=== PATIENT | female | born 1965 | race Caucasian/White ===

== ENCOUNTER 2016-10-02 07:44 | Day surgery (SDC) | payer OTHER ==
[2016-09-28 09:49] VITALS: BMI 44.2
[~2016-10-02 07:44] MED LIST: LACTATED RINGERS 1,000 ML IV SCH
[2016-10-02 08:22] VITALS: RESP 16; TEMP 97.1
[2016-10-02 08:27] LABS: Glucose,Whole Blood 256 mg/dL (75-99)
[2016-10-02] MEDS ORDERED: LIDOCAINE 1% 20 ML VIAL (10MG/ML) FOR IV START SQ ONE (08:27)
[2016-10-02] MEDS ORDERED: LIDOCAINE 1% INJ 10MG/ML (20 ML MDV) ONE (08:29)
[2016-10-02] MEDS ORDERED: MIDAZOLAM 2 MG/2 ML VIAL ONE (08:29)
[2016-10-02] MEDS ORDERED: PROPOFOL 10 MG/ML 20 ML VIAL IV ONE (08:29)
[2016-10-02] MEDS ORDERED: KETAMINE 10 MG/ML 20 ML VIAL ONE (08:29)
--- NOTE | 2016-10-02 08:54 | P.PCN ---
Date of Procedure: 10/02/16 Preoperative Diagnosis: Postoperative Diagnosis: Procedure(s) Performed: Procedure: Esophagogastroduodenoscopy and biopsy. Preoperative diagnosis: Dysphagia. Postoperative diagnosis: Normal esophagus with no evidence of esophagitis or strictures. Mild antral gastritis. Biopsies obtained from the duodenum, antrum and esophagus. Preparation and sedation: Was provided by anesthesia. Brief clinical history: The patient is a 51-year-old female who I have evaluated in the office for dysphagia of around 6 months duration. She gave history of chronic reflux. No other alarm symptoms. This would be her first upper endoscopy. Procedure: With the patient on her left lateral decubitus position and after informed consent and adequate sedation, I passed the Olympus-GIF 160 video upper endoscope through the cricopharyngeus down the esophagus. GE junction was around 39 cm from the incisors and there was no obvious hiatal hernia. The esophagus did not show any erosions, ulcers, strictures or Lanza's esophagus. The endoscope was then passed into the stomach which was insufflated with air and inspected in detail including the retroflex view in the cardia. In that view, I could see ample space around the endoscope. There was some mottling and erythema in the antrum but no ulcers or erosions. Pyloric channel, duodenal bulb, post bulbar area and descending duodenum appeared within normal limits. I obtained multiple biopsies from the duodenum, antrum and esophagus then the endoscope was withdrawn. The patient tolerated the procedure well. Plan: The patient was reassured. Will await biopsy results. Further plans will be made based on her course and biopsy results. I will keep you updated on her progress. Implants: Indications for Procedure: Operative Findings: Description of Procedure:
[2016-10-02 09:00] LABS: Glucose,Whole Blood 244 mg/dL (75-99)
[2016-10-02 09:22] VITALS: BP 126/84; PULSE 82
== END 2016-10-02 09:40 | disposition home or self-care (01) ==
LOC: ORWHC2ENDO 07:44
DX: K29.50 Unspecified chronic gastritis without bleeding (principal); K21.0 Gastro-esophageal reflux disease with esophagitis; I10 Essential (primary) hypertension; E11.9 Type 2 diabetes mellitus without complications; M19.90 Unspecified osteoarthritis, unspecified site; Z88.0 Allergy status to penicillin; Z88.2 Allergy status to sulfonamides; Z88.1 Allergy status to other antibiotic agents; Z88.8 Allergy status to other drugs, medicaments and biological substances; Z79.1 Long term (current) use of non-steroidal anti-inflammatories (NSAID); Z79.84 Long term (current) use of oral hypoglycemic drugs; Z79.4 Long term (current) use of insulin; Z79.899 Other long term (current) drug therapy
CPT/HCPCS: 43239; 81025; 88305; 88342; J2250; J2001; J2704

== ENCOUNTER → 2017-06-06 | Outpatient (CLI) | payer OTHER ==
--- NOTE | 2017-06-07 09:11 | XR ---
EXAMINATION TYPE: XR knee limited RT DATE OF EXAM: 06/06/2017 CLINICAL HISTORY: Generalized knee pain after fall approximately 7-8 weeks ago TECHNIQUE: Two views of the right knee are obtained. COMPARISON: None. FINDINGS: There is no acute fracture/dislocation evident in right knee. The tri-compartment joint s paces demonstrate mild narrowing with small distal femoral condylar osteophytes and tibial plateau os teophytes. The overlying soft tissue appears unremarkable. Small suprapatellar joint effusion is see n. IMPRESSION: 1. There is no acute fracture or dislocation in the right knee. 2. Small suprapatellar joint effusion. 3. Mild tricompartmental arthrosis.
== END | disposition home or self-care (01) ==
LOC: RADXRYALE 11:35
PROVIDERS: ATTEND Internal Medicine
DX: M17.11 Unilateral primary osteoarthritis, right knee (principal); M25.462 Effusion, left knee

== ENCOUNTER 2017-10-01 08:31 | Observation (INO) | payer OTHER ==
[2017-10-01] MEDS ORDERED: ONDANSETRON 4 MG/2 ML VIAL IVP STA (09:01)
[2017-10-01] MEDS ORDERED: SODIUM CHLORIDE 0.9% 1,000 ML IV STA (09:01)
[2017-10-01] MEDS ORDERED: SODIUM CHLORIDE 0.9% 500 ML IV STA (09:01)
[2017-10-01] MEDS ORDERED: MECLIZINE 12.5 MG TAB PO STA (09:01)
[2017-10-01 09:27] LABS: Prothrombin Time 9.8 sec (9.0-12.0)
[2017-10-01 09:28] LABS: ALT 64 U/L (9-52); AST 41 U/L (14-36); Albumin 4.3 g/dL (3.5-5.0); Alkaline Phosphatase 112 U/L (38-126); Anion Gap 13 mmol/L; Blood Urea Nitrogen 21 mg/dL (7-17); Calcium 9.4 mg/dL (8.4-10.2); Carbon Dioxide 29 mmol/L (22-30); Chloride 96 mmol/L (98-107); Glucose 313 mg/dL (74-99); Sodium 138 mmol/L (137-145); Total Bilirubin 0.4 mg/dL (0.2-1.3); Total Protein 7.2 g/dL (6.3-8.2)
--- NOTE | 2017-10-01 09:37 | CT ---
EXAMINATION TYPE: CT brain wo con DATE OF EXAM: 10/01/2017 COMPARISON: NONE HISTORY: 52-year-old female with pain, altered mental status TECHNIQUE: Examination was done in axial plane without intravenous contrast. Coronal and sagittal r econstructions performed. CT DLP: 1219 mGycm Automated exposure control for dose reduction was used. FINDINGS: Calvarial artifacts are present. Within this limitation, there is no convincing evidence of acute intracranial hemorrhage, acute isch emic changes, mass, mass-effect, or extra-axial fluid collection. There is no effacement of cerebral sulci or basal subarachnoid cisterns. There is no hydrocephalus. There is no midline shift. Stephens- white matter distinction is preserved. Paranasal sinuses and mastoid air cells are well pneumatized. Orbits and globes are intact with prior cataract surgery on the left. IMPRESSION: Allowing for mild calvarial artifacts, no acute intracranial abnormality seen.
--- NOTE | 2017-10-01 10:04 | XR ---
EXAMINATION TYPE: XR cervical spine comp DATE OF EXAM: 10/01/2017 COMPARISON: NONE HISTORY: 52-year-old female with sudden onset dizziness, confusion, neck pain TECHNIQUE: 5 views FINDINGS: No predental space widening or prevertebral soft tissue swelling. Mild to moderate endplate spondylos is is present at C4-C7 levels. 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 Alignment is maintained. Mild bony spondylotic neuroforaminal narrowing on the right at C5-C6 and mild on the left at C4-C5, C 5-C6, and C6-C7. Normal odontoid view. IMPRESSION: Mild to moderate spondylotic change mid to lower cervical spine. No malalignment or prevertebral soft tissue swelling. Variable mild neuroforaminal stenoses, left greater than right.
[2017-10-01] MEDS ORDERED: INSULIN REGULAR 100 UNIT/ML VIAL SQ ONE (12:41)
[2017-10-01 13:02] LABS: Glucose,Whole Blood 236 mg/dL (75-99)
[2017-10-01] MEDS ORDERED: ACETAMINOPHEN TAB 500 MG TAB PO STA (13:30)
[2017-10-01] MEDS ORDERED: ACETAMINOPHEN TAB 325 MG TAB PO PRN (14:47)
[2017-10-01] MEDS ORDERED: MORPHINE SULFATE 4 MG/ML SYRINGE IV PRN (14:47)
[2017-10-01] MEDS ORDERED: NALOXONE 0.4 MG/ML 1 ML VIAL IV PRN (14:47)
[2017-10-01] MEDS ORDERED: ONDANSETRON 4 MG/2 ML VIAL IVP PRN (14:47)
--- NOTE | 2017-10-01 14:47 | ED ---
Dizziness HPI - General Chief Complaint: Dizziness Stated Complaint: Altered Mental Status Time Seen by Provider: 10/01/17 08:55 Source: patient, EMS Mode of arrival: EMS Limitations: no limitations - History of Present Illness Initial Comments: 52 years old female presents with the dizziness, this morning she was driving she is also dizzy she wasn't able to continue driving she pulled over to freeway she was felt like she was she couldn't see well for him and it also complaining about the neck pain she does have a history of trauma she does have a history of degenerative disease in the neck. Denies any chest pain has a palpitation complaints about the back pain has a headache no weakness of upper or lower extremities no abdominal pain no frequency urgency dysuria - Related Data Home Medications Medication Instructions Recorded Confirmed Gabapentin [Neurontin] 100 mg PO BID 06/23/15 10/01/17 Glimepiride [Amaryl] 1 mg PO AC-BID 06/23/15 10/01/17 Ibuprofen [Motrin] 800 mg PO BID 06/23/15 10/01/17 Insulin Glargine [Lantus] 20 unit SQ HS 06/23/15 10/01/17 Insulin Glulisine [Apidra] 4 unit SQ AC-TID 06/23/15 10/01/17 Lisinopril-Hctz 20-25 mg 1 tab PO QAM 06/23/15 10/01/17 [Zestoretic 20-25] Omeprazole [PriLOSEC] 20 mg PO AC-BRKFST 06/23/15 10/01/17 PARoxetine HCL [PARoxetine HCL] 40 mg PO QAM 06/23/15 10/01/17 Insulin Glulisine [Apidra] See Protocol SQ AC-TID 07/04/15 10/01/17 Bimatoprost [Lumigan .01% Ophth 1 drop BOTH EYES HS 09/28/16 10/01/17 Soln] Sodium Chloride 5% Ophth Soln 1 drops RIGHT EYE BID 09/28/16 10/01/17 [Marko 128] prednisoLONE ACETATE 1% OPHTH 1 drops LEFT EYE BID 10/01/17 10/01/17 [Pred Forte 1%] Allergies Allergy/AdvReac Type Severity Reaction Status Date / Time levofloxacin [From Levaquin] Allergy Intermediate tendonitis Verified 10/01/17 09:34 glyburide Allergy Swelling Verified 10/01/17 09:34 Penicillins Allergy Unknown Verified 10/01/17 09:34 Childhood Sulfa (Sulfonamide Allergy Unknown Verified 10/01/17 09:34 Antibiotics) Childhood doxycycline AdvReac severe Verified 10/01/17 09:34 vomiting metformin AdvReac severe Verified 10/01/17 09:34 diarrhea Review of Systems ROS Statement: Those systems with pertinent positive or pertinent negative responses have been documented in the HPI. ROS Other: All systems not noted in ROS Statement are negative. 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, right breast needle biopsy; colonoscopy & polypectomy Past Anesthesia/Blood Transfusion Reactions: No Reported Reaction Past Psychological History: Depression Smoking Status: Never smoker Past Alcohol Use History: None Reported Past Drug Use History: None Reported - Past Family History Mother Family Medical History: Cancer, Diabetes Mellitus, Hypertension, Skin Disorder Additional Family Medical History / Comment(s): CA: thyroid, breast, skin; cataracts Father History Unknown: Yes General Exam - General Exam Comments Initial Comments: General: The patient is awake and alert, in mild distress, she looks anxious and uncomfortable Skin: Skin is warm and dry and no rashes or lesions are noted. Eye: Pupils are equal, round and reactive to light, extra-ocular movements are intact; there is normal conjunctiva bilaterally. Ears, nose, mouth and throat: It is some effusion behind the left tympanic membrane Neck: The neck is supple, there is no tenderness , no signs of any meningitis Cardiovascular: There is a regular rate and rhythm. No murmur, rub or gallop is appreciated. Respiratory: To auscultation bilateral, no wheezing no rhonchi no distress respiratory johnson noticed Gastrointestinal: Soft, non-distended, non-tender abdomen without masses or organomegaly noted. There is no rebound or guarding present. Bowel sounds are unremarkable. Back: There is no tenderness to palpation in the midline. There is no obvious deformity. Musculoskeletal: Normal ROM, no tenderness, There is no pedal edema. There is no calf tenderness or swelling. No cords were appreciated. Neurological: CN II-XII intact, Cranial nerves III through XII are intact. There are no obvious motor or sensory deficits. Coordination appears grossly intact. Speech is normal. Psychiatric: Cooperative, appropriate mood & affect, normal judgment. Limitations: no limitations Course Vital Signs 10/01/17 10/01/17 10/01/17 08:35 10:53 12:54 Temperature 98.1 F Pulse Rate 84 88 83 Pulse Rate [ Sitting] Pulse Rate [ Standing] Pulse Rate [ Supine] Respiratory 16 16 18 Rate Blood Pressure 153/75 132/66 129/75 Blood Pressure [Sitting] Blood Pressure [Standing] Blood Pressure [Supine] O2 Sat by Pulse 91 L 96 96 Oximetry 10/01/17 10/01/17 10/01/17 13:19 13:21 13:24 Temperature Pulse Rate Pulse Rate [ 96 Sitting] Pulse Rate [ 107 H Standing] Pulse Rate [ 84 Supine] Respiratory 18 18 18 Rate Blood Pressure Blood Pressure 142/88 [Sitting] Blood Pressure 151/97 [Standing] Blood Pressure 130/84 [Supine] O2 Sat by Pulse Oximetry Patient was reassessed several times at one point she was quite feeling well and she wanted to go home then she was reassessed later in the she said she still has a headache she still feels dizzy considering that since his CT brain cannot rule out any brainstem infarct I plan to admit her to have neurology see her and probably MRI of the brain area orthostatics and good - Reevaluation(s) Reevaluation #1: Cervical spine showed quite a bit of degenerative joint disease head CT is normal glucose is 313 CO2 was normal there is no ketoacidosis later we plan to give her some mild subcu insulin at that time sugar has dropped to around 220 then we held the insulin Admitted to Dr. Faria service and neurology be consulted 10/01/17 14:45 EKG Findings - EKG Comments: EKG Findings:: EKG is normal sinus rhythm medical rate is 81 NE interval is 144 QRS duration is 88 QT/QTc is 370/434 review of this EKG reveals some T-wave inversion in lead [address] elevation or ST depression noticed in the rest of the Medical Decision Making - Lab Data Result diagrams: 10/01/17 08:44 Lab Results 10/01/17 10/01/17 10/01/17 Range/Units 08:44 08:44 08:44 PT 9.8 (9.0-12.0) sec INR 1.0 (<1.2) Sodium 138 (137-145) mmol/L Potassium 5.0 (3.5-5.1) mmol/L Chloride 96 L (98-107) mmol/L Carbon Dioxide 29 (22-30) mmol/L Anion Gap 13 mmol/L BUN 21 H (7-17) mg/dL Creatinine 0.73 (0.52-1.04) mg/dL Est GFR (CKD-EPI)AfAm >90 (>60 ml/min/1.73 sqM) Est GFR (CKD-EPI)NonAf >90 (>60 ml/min/1.73 sqM) Glucose 313 H (74-99) mg/dL POC Glucose (mg/dL) (75-99) mg/dL POC Glu Cmo & President ID Calcium 9.4 (8.4-10.2) mg/dL Total Bilirubin 0.4 (0.2-1.3) mg/dL AST 41 H (14-36) U/L ALT 64 H (9-52) U/L Alkaline Phosphatase 112 (38-126) U/L Troponin I <0.012 (0.000-0.034) ng/mL Total Protein 7.2 (6.3-8.2) g/dL Albumin 4.3 (3.5-5.0) g/dL 10/01/17 Range/Units 12:58 PT (9.0-12.0) sec INR (<1.2) Sodium (137-145) mmol/L Potassium (3.5-5.1) mmol/L Chloride (98-107) mmol/L Carbon Dioxide (22-30) mmol/L Anion Gap mmol/L BUN (7-17) mg/dL Creatinine (0.52-1.04) mg/dL Est GFR (CKD-EPI)AfAm (>60 ml/min/1.73 sqM) Est GFR (CKD-EPI)NonAf (>60 ml/min/1.73 sqM) Glucose (74-99) mg/dL POC Glucose (mg/dL) 236 H (75-99) mg/dL POC Glu Cmo & President ID May Hitchcock Calcium (8.4-10.2) mg/dL Total Bilirubin (0.2-1.3) mg/dL AST (14-36) U/L ALT (9-52) U/L Alkaline Phosphatase (38-126) U/L Troponin I (0.000-0.034) ng/mL Total Protein (6.3-8.2) g/dL Albumin (3.5-5.0) g/dL Disposition Clinical Impression: Dizziness, Headache Disposition: ADMITTED IP TO THIS [facility] Condition: Good Referrals: Steffi Faria MD [Primary Care Provider] - 1-2 days
[2017-10-01] MEDS ORDERED: MECLIZINE 25 MG TAB PO PRN (14:54)
[2017-10-01] MEDS ORDERED: ASPIRIN 81 MG PO STA (14:54)
[2017-10-01 15:39] LABS: Basophils # (A) 0.1 k/uL (0-0.2); Basophils % (A) 1 %; Eosinophils # (A) 0.2 k/uL (0-0.7); Eosinophils % (A) 3 %; HCT 46.1 % (34.0-46.0); HGB 15.1 gm/dL (11.4-16.0); Lymphocytes # (A) 2.8 k/uL (1.0-4.8); Lymphocytes % (A) 38 %; MCH 29.6 pg (25.0-35.0); MCHC 32.9 g/dL (31.0-37.0); Mean Platelet Volume 8.8; Monocytes # (A) 0.5 k/uL (0-1.0); Monocytes % (A) 6 %; Neutrophils # (A) 3.8 k/uL (1.3-7.7); Neutrophils % (A) 51 %; Platelet Count 336 k/uL (150-450); RBC 5.12 m/uL (3.80-5.40); RDW 13.3 % (11.5-15.5); WBC 7.4 k/uL (3.8-10.6)
[2017-10-01 17:13] LABS: Glucose,Whole Blood 200 mg/dL (75-99)
--- NOTE | 2017-10-01 17:44 | P.HPIM ---
History of Present Illness 52-year-old female came in after she felt like she is being fragment of the right side when she was driving on the freeway and patient tried to drive towards the left and stopped. Patient was comparing of dizziness neck pain and headache at the time dizziness is mostly lightheadedness denied in no vertiginous symptoms. Patient denied any weakness. Denied any sensory deficits , denied any shortness of breath cough runny nose. Patient had a CAT scan of the head which did not show any significant abnormality. Patient is still having some headache and neck pain no photophobia no neck rigidity no fevers no body aches patient denied any gait abnormality after coming out of the car. Review of Systems REVIEW OF SYSTEMS: CONSTITUTIONAL: No fever, no malaise, no fatigue. HEENT: No recent visual problems or hearing problems. Denied any sore throat. CARDIOVASCULAR: No chest pain, orthopnea, PND, no palpitations, no syncope. PULMONARY: No shortness of breath, no cough, no hemoptysis. GASTROINTESTINAL: No diarrhea, no nausea, no vomiting, no abdominal pain. Normoactive bowel sounds. NEUROLOGICAL: no weakness, no numbness. HEMATOLOGICAL: Denies any bleeding or petechiae. GENITOURINARY: Denies any burning micturition, frequency, or urgency. MUSCULOSKELETAL/RHEUMATOLOGICAL: Denies any joint pain, swelling, or any muscle pain. ENDOCRINE: Denies any polyuria or polydipsia. The rest of the 14-point review of systems is negative. Past Medical History Past Medical History: Diabetes Mellitus, Eye Disorder, GERD/Reflux, GI Bleed, Hypertension, Osteoarthritis (OA), Pneumonia Additional Past Medical History / Comment(s): DYSPHAGIA, vit d deficiency, diverticulosis & COLON POLYPS, narrow angle glaucoma, CHRONIC BACK PAIN, NEUROPATHY JAIDA FEET AND HANDS, fell apr 2017 tore rt meniscus, "told in past that an ekg showed prior evidence of an mi-pt does'nt know when it happened", tremors, lt eye cataract(sx), past gi bleed source unk. 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, right breast needle biopsy-benign; colonoscopy & polypectomy-benign, lt corneal transplant, lt eye cataract-lens implant Past Anesthesia/Blood Transfusion Reactions: No Reported Reaction Smoking Status: Never smoker - Past Family History Mother Family Medical History: Cancer, Diabetes Mellitus, Hypertension, Skin Disorder Additional Family Medical History / Comment(s): CA: thyroid, breast, skin; cataracts Father History Unknown: Yes Additional Family Medical History / Comment(s): pt's father when he was 29 , in a mva Medications and Allergies Home Medications Medication Instructions Recorded Confirmed Type Gabapentin [Neurontin] 100 mg PO BID 06/23/15 10/01/17 History Glimepiride [Amaryl] 1 mg PO AC-BID 06/23/15 10/01/17 History Ibuprofen [Motrin] 800 mg PO BID 06/23/15 10/01/17 History Insulin Glargine [Lantus] 20 unit SQ HS 06/23/15 10/01/17 History Insulin Glulisine [Apidra] 4 unit SQ AC-TID 06/23/15 10/01/17 History Lisinopril-Hctz 20-25 mg 1 tab PO QAM 06/23/15 10/01/17 History [Zestoretic 20-25] Omeprazole [PriLOSEC] 20 mg PO AC-BRKFST 06/23/15 10/01/17 History PARoxetine HCL [PARoxetine HCL] 40 mg PO QAM 06/23/15 10/01/17 History Insulin Glulisine [Apidra] See Protocol SQ AC-TID 07/04/15 10/01/17 History Bimatoprost [Lumigan .01% Ophth 1 drop BOTH EYES HS 09/28/16 10/01/17 History Soln] Sodium Chloride 5% Ophth Soln 1 drops RIGHT EYE BID 09/28/16 10/01/17 History [Marko 128] prednisoLONE ACETATE 1% OPHTH 1 drops LEFT EYE BID 10/01/17 10/01/17 History [Pred Forte 1%] Allergies Allergy/AdvReac Type Severity Reaction Status Date / Time levofloxacin [From Levaquin] Allergy Intermediate tendonitis Verified 10/01/17 09:34 glyburide Allergy Swelling Verified 10/01/17 09:34 Penicillins Allergy Unknown Verified 10/01/17 09:34 Childhood Sulfa (Sulfonamide Allergy Unknown Verified 10/01/17 09:34 Antibiotics) Childhood doxycycline AdvReac severe Verified 10/01/17 09:34 vomiting metformin AdvReac severe Verified 10/01/17 09:34 diarrhea Physical Exam Vitals: Vital Signs Temp Pulse Pulse Pulse Pulse Pulse Resp 10/01/17 16:00 98.7 F 85 18 10/01/17 15:39 98.4 F 94 16 10/01/17 13:24 107 H 18 10/01/17 13:21 96 18 10/01/17 13:19 84 18 10/01/17 12:54 83 18 10/01/17 10:53 88 16 10/01/17 08:35 98.1 F 84 16 BP BP BP BP BP Pulse Ox 10/01/17 16:00 131/75 94 L 10/01/17 15:39 136/70 94 L 10/01/17 13:24 151/97 10/01/17 13:21 142/88 10/01/17 13:19 130/84 10/01/17 12:54 129/75 96 10/01/17 10:53 132/66 96 10/01/17 08:35 153/75 91 L Intake and Output 10/01/17 10/01/17 10/01/17 06:59 14:59 22:59 Other: Weight 117.48 kg 118 kg PHYSICAL EXAMINATION: GENERAL: The patient is alert and oriented x3, not in any acute distress. Well developed, well nourished. HEENT: Pupils are round and equally reacting to light. EOMI. No scleral icterus. No conjunctival pallor. Normocephalic, atraumatic. No pharyngeal erythema. No thyromegaly. CARDIOVASCULAR: S1 and S2 present. No murmurs, rubs, or gallops. PULMONARY: Chest is clear to auscultation, no wheezing or crackles. ABDOMEN: Soft, nontender, nondistended, normoactive bowel sounds. No palpable organomegaly. MUSCULOSKELETAL: No joint swelling or deformity. EXTREMITIES: No cyanosis, clubbing, or pedal edema. NEUROLOGICAL: Gross neurological examination did not reveal any focal deficits. SKIN: No rashes. Results CBC & Chem 7: 10/01/17 08:44 10/01/17 08:44 Labs: Abnormal Lab Results - Last 24 Hours (Table) 10/01/17 10/01/17 10/01/17 Range/Units 08:44 08:44 12:58 Hct 46.1 H (34.0-46.0) % Chloride 96 L (98-107) mmol/L BUN 21 H (7-17) mg/dL Glucose 313 H (74-99) mg/dL POC Glucose (mg/dL) 236 H (75-99) mg/dL AST 41 H (14-36) U/L ALT 64 H (9-52) U/L 10/01/17 Range/Units 17:10 Hct (34.0-46.0) % Chloride (98-107) mmol/L BUN (7-17) mg/dL Glucose (74-99) mg/dL POC Glucose (mg/dL) 200 H (75-99) mg/dL AST (14-36) U/L ALT (9-52) U/L Thrombosis Risk Factor Assmnt - Choose All That Apply Any of the Below Risk Factors Present?: Yes Each Factor Represents 1 point: Age 41-60 years, Obesity (BMI >25) Thrombosis Risk Factor Assessment Total Risk Factor Score: 2 Thrombosis Risk Factor Assessment Level: Low Risk Assessment and Plan Plan: -Rule out stroke or TIA: Patient came in with the above-mentioned nonspecific symptoms unsure of the exact etiology of her symptoms because of which are up consul tingling neurology MRI was ordered from ER. Headache neck pain and some dizziness associated with that probably related to cervical cephalalgia and degenerative neck disease and neck x-rays consistent with that -Peripheral neuropathy from degenerative spine disease as well as diabetic neuropathy -Type 2 diabetes mellitus uncontrolled blood sugars patient will be resumed on her home regimen titration depending on her blood sugars here 3 times a day before meals Accu-Cheks -Gastroesophageal reflux disease -Depression -Hypertension For above-mentioned chronic medical problems patient was resumed and continued on home medications which ever is appropriate
[2017-10-01] MEDS: INSULIN ASPART 100 UNIT/ML 1 ML 10 ML VIAL SQ SCH ×2 (17:45→22:44)
[2017-10-01] MEDS: GLIMEPIRIDE 1 MG TAB PO SCH (17:45)
[2017-10-01 19:20] VITALS: RESP 16
[2017-10-01 20:35] LABS: Glucose,Whole Blood 214 mg/dL (75-99)
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
[2017-10-01] MEDS ORDERED: LATANOPROST 0.005% OPHTH DROPS 2.5 ML BTL BOTH EYES SCH (21:00)
[2017-10-01] MEDS ORDERED: INSULIN DETEMIR 100 UNIT/ML 10 ML VIAL SQ SCH (21:00)
[2017-10-01] MEDS: IBUPROFEN 800 MG TAB PO SCH (22:40)
[2017-10-01] MEDS: prednisoLONE ACETATE 1% OPHTH DROPS 5 ML BTL LEFT EYE SCH (22:41)
[2017-10-01] MEDS: SODIUM CHLORIDE 5% OPHTH DROPS 15 ML BTL RIGHT EYE SCH (22:41)
[2017-10-01] MEDS: GABAPENTIN 100 MG CAP PO SCH (22:43)
[2017-10-02 06:59] LABS: Glucose,Whole Blood 128 mg/dL (75-99)
[2017-10-02 07:19] LABS: Anion Gap 9 mmol/L; Blood Urea Nitrogen 20 mg/dL (7-17); Carbon Dioxide 32 mmol/L (22-30); Chloride 100 mmol/L (98-107); Cholesterol 236 mg/dL (<200); Glucose 142 mg/dL (74-99); HDL Cholesterol 39 mg/dL (40-60); LDL Cholesterol,Calculated 159 mg/dL (0-99); Potassium 4.4 mmol/L (3.5-5.1); Sodium 141 mmol/L (137-145); Triglycerides 189 mg/dL (<150)
[2017-10-02] MEDS ORDERED: PANTOPRAZOLE 40 MG TABLET PO SCH (07:30)
[2017-10-02] MEDS ORDERED: LORazepam 2 MG/ML INJ IV STA ×2 (08:36)
[2017-10-02] MEDS ORDERED: PARoxetine 20 MG TAB PO SCH (09:00)
[2017-10-02] MEDS ORDERED: LISINOPRIL-HCTZ 20-25 MG 1 EACH TAB PO SCH (09:00)
[2017-10-02] MEDS ORDERED: ASPIRIN 81 MG PO SCH (09:00)
--- NOTE | 2017-10-02 09:24 | US ---
EXAMINATION TYPE: US carotid duplex BILAT DATE OF EXAM: 10/02/2017 COMPARISON: NONE CLINICAL HISTORY: tia. Patient c/o weakness, tiredness, headache EXAM MEASUREMENTS: RIGHT: Peak Systolic Velocity (PSV) cm/sec ----- Right CCA: 119.0 ----- Right ICA: 125.5 ----- Right ECA: 180.6 ICA/CCA ratio: 1.1 RIGHT: End Diastole cm/sec ----- Right CCA: 41.4 ----- Right ICA: 49.5 ----- Right ECA: 17.0 LEFT: Peak Systolic Velocity (PSV) cm/sec ----- Left CCA: 140.0 ----- Left ICA: 133.5 ----- Left ECA: 162.9 ICA/CCA ratio: 1.0 LEFT: End Diastole cm/sec ----- Left CCA: 41.4 ----- Left ICA: 55.9 ----- Left ECA: 18.9 VERTEBRALS (direction of flow): Right Vertebral: Antegrade Left Vertebral: Antegrade Rhythm: Normal Small amount of soft plaque seen. No calcified plaque identified. IMPRESSION: 1. Mild Atheromatous plaquing contributing to mild bilateral stenosis between 50 and 69% Criteria for Assigning % of Stenosis / Diameter reduction (Estimation based on the indirect measurements of the internal carotid artery velocities (ICA PSV). 1. Normal (no stenosis)=ICA PSV < 125 cm/s: ratio < 2.0: ICA EDV<40 cm/s. 2. Less than 50% stenosis=ICA PSV < 125 cm/s: ratio < 2.0: ICA EDV<40 cm/s. 3. 50 to 69% stenosis=ICA PSV of 125 to 230 cm/s: ration 2.0 ? 4.0: ICA EDV 40-100 cm/s. 4. Greater than 70% stenosis to near occlusion= ICA PSV > 230 cm/s: ratio > 4.0: ICA EDV > 100 cm/s. 5. Near occlusion= ICA PSV velocities may be low or undetectable: variable ratio and ICA EDV. 6. Total occlusion=unable to detect flow.
[2017-10-02] MEDS: INSULIN ASPART 100 UNIT/ML 1 ML 10 ML VIAL SQ SCH ×2 (10:02→12:20)
[2017-10-02] MEDS: IBUPROFEN 800 MG TAB PO SCH (10:02)
[2017-10-02] MEDS: GABAPENTIN 100 MG CAP PO SCH (10:02)
[2017-10-02] MEDS: GLIMEPIRIDE 1 MG TAB PO SCH (10:02)
[2017-10-02] MEDS: prednisoLONE ACETATE 1% OPHTH DROPS 5 ML BTL LEFT EYE SCH (10:08)
[2017-10-02] MEDS: SODIUM CHLORIDE 5% OPHTH DROPS 15 ML BTL RIGHT EYE SCH (10:08)
--- NOTE | 2017-10-02 10:38 | MR ---
EXAMINATION TYPE: MR brain wo/w monty wo DATE OF EXAM: 10/02/2017 COMPARISON: 10/01/2017 CT brain HISTORY: Rule out brainstem infarct, neck pain and head pain. TECHNIQUE: Multiplanar, multisequence images of the brain and brainstem is performed without and with IV contras t, utilizing 12 mL intravenous Gadavist . FINDINGS: Diffusion weighted images demonstrate no evidence of a recent infarct or other diffusion ab normality. There is no extra-axial fluid collection or significant white matter signal abnormality. The ventricular system and cisternal spaces are normal in size and appearance. The brain volume is age appropriate. Midline structures demonstrate normal morphology. The craniocervical junction appears within normal limits. Post contrast images demonstrate no abnormal enhancement. The dural venous sinuses appear pa tent. The visualized sinuses are clear and the globes are intact. There is slight motion artifact in the cervical spine, somewhat limiting evaluation. Vertebral bodies maintain normal vertebral body height and alignment. Posterior fossa is grossly unremarkable. Bone m arrow signal is within normal limits. Multilevel posterior disc osteophyte complexes are seen. At C2-C3 there is no significant disc disease, spinal canal stenosis or neural foraminal narrowing. At C3-C4 there is uncovertebral hypertrophy and facet arthropathy resulting in mild right neural fora roney narrowing. Spinal canal and left neural foramen are patent. At C4-C5 there is a small left paracentral posterior disc osteophyte complex minimally effacing the s rubén canal resulting in minimal spinal canal stenosis. There is also uncovertebral hypertrophy and f acet arthropathy creating mild left neural foraminal narrowing. Right neuroforamen is patent. At C5-C6 there is a left paracentral small disc herniation and disc osteophyte complex creating mild spinal canal stenosis. Uncovertebral hypertrophy and facet arthropathy also creates minimal bilateral neural foraminal narrowing. At C6-C7 there is a small broad-based disc bulge. No significant spinal canal stenosis or neural fora roney narrowing. At C7-T1 there is no significant disc disease, spinal canal stenosis or neuroforaminal narrowing. Evaluation of the spinal cord signal is limited due to patient motion. IMPRESSION: 1. No evidence of acute infarct of the cerebellum, brainstem, or cerebrum. 2. No abnormal intracranial enhancement, midline shift or evidence of intracranial mass. 3. Limitation of the spinal cord evaluation due to patient motion. 4. Small left paracentral posterior disc osteophyte complex at C4-C5 creating minimal spinal canal st enosis. There is also resultant mild left neural foraminal narrowing. 5. Small left paracentral disc herniation at C5-C6 creating mild spinal canal stenosis and minimal bi lateral neural foraminal narrowing.
[2017-10-02 11:51] LABS: Glucose,Whole Blood 173 mg/dL (75-99)
[2017-10-02 12:10] VITALS: BP 129/66; PULSE 82; TEMP 98.2
--- NOTE | 2017-10-02 12:27 | ECHOF ---
Referral Reason:tia MEASUREMENTS -------- HEIGHT: 165.1 cm WEIGHT: 117.9 kg BP: 119/71 RVIDd: 3.3 cm (< 3.3) IVSd: 1.3 cm (0.6 - 1.1) LVIDd: 4.2 cm (3.9 - 5.3) LVPWd: 1.4 cm (0.6 - 1.1) IVSs: 1.6 cm LVIDs: 2.7 cm LVPWs: 1.8 cm LA Diam: 3.8 cm (2.7 - 3.8) LAESV Index (A-L): 14.80 ml/m Ao Diam: 3.2 cm (2.0 - 3.7) AV Cusp: 1.8 cm (1.5 - 2.6) EPSS: 0.4 cm MV E Jim: 0.74 m/s MV DecT: 171 ms MV A Jim: 0.63 m/s MV E/A Ratio: 1.16 MV EF SLOPE: 82.63 mm/s (70 - 150) MV EXCURSION: 0.81 cm (> 18.000) FINDINGS -------- Sinus rhythm. This was a technically good study. The left ventricular size is normal. There is moderate concentric left ventricular hypertrophy. O verall left ventricular systolic function is normal with, an EF between 55 - 60 %. The right ventricle is mildly enlarged. Normal LA size by volume 22+/-6 ml/m2. The right atrium is normal in size. The aortic valve is trileaflet and appears structurally normal. The mitral valve is normal. The tricuspid valve appears structurally normal. The pulmonic valve was not well visualized. The aortic root size is normal. Normal inferior vena cava with normal inspiratory collapse consistent with estimated right atrial pre ssure of 5 mmHg. There is no pericardial effusion. CONCLUSIONS -------- 1. Sinus rhythm. 2. This was a technically good study. 3. The left ventricular size is normal. 4. There is moderate concentric left ventricular hypertrophy. 5. Overall left ventricular systolic function is normal with, an EF between 55 - 60 %. 6. The right ventricle is mildly enlarged. 7. Normal LA size by volume 22+/-6 ml/m2. 8. The right atrium is normal in size. 9. The aortic valve is trileaflet and appears structurally normal. 10. The mitral valve is normal. 11. The tricuspid valve appears structurally normal. 12. The pulmonic valve was not well visualized. 13. The aortic root size is normal. 14. Normal inferior vena cava with normal inspiratory collapse consistent with estimated right atrial pressure of 5 mmHg. 15. There is no pericardial effusion. NUMBERER AND WIRER: ALIREZA Malcolm
[2017-10-02] MEDS ORDERED: KETOROLAC 30 MG/ML 1 ML VIAL IVP STA (14:42)
[2017-10-02 15:21] LABS: Hemoglobin A1C 10.8 % (4.0-6.0)
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
== END 2017-10-02 15:56 | disposition home or self-care (01) ==
LOC: EC 08:31 → 3OBS 14:47
PROVIDERS: ADMIT Hospitalist; ATTEND Hospitalist
DX: R51 Headache (principal); M54.2 Cervicalgia; R42 Dizziness and giddiness; H53.9 Unspecified visual disturbance; I65.23 Occlusion and stenosis of bilateral carotid arteries; M50.222 Other cervical disc displacement at C5-C6 level; K21.9 Gastro-esophageal reflux disease without esophagitis; I10 Essential (primary) hypertension; H40.20X0 Unspecified primary angle-closure glaucoma, stage unspecified; E11.42 Type 2 diabetes mellitus with diabetic polyneuropathy; M19.90 Unspecified osteoarthritis, unspecified site; K57.90 Diverticulosis of intestine, part unspecified, without perforation or abscess without bleeding; G89.29 Other chronic pain; M54.9 Dorsalgia, unspecified; E55.9 Vitamin D deficiency, unspecified; Z90.49 Acquired absence of other specified parts of digestive tract; F32.9 Major depressive disorder, single episode, unspecified; M47.9 Spondylosis, unspecified; E66.9 Obesity, unspecified; Z68.41 Body mass index [BMI] 40.0-44.9, adult; E11.65 Type 2 diabetes mellitus with hyperglycemia; Z79.1 Long term (current) use of non-steroidal anti-inflammatories (NSAID); Z79.4 Long term (current) use of insulin; Z79.52 Long term (current) use of systemic steroids; Z79.899 Other long term (current) drug therapy; Z88.0 Allergy status to penicillin; Z88.1 Allergy status to other antibiotic agents; Z88.2 Allergy status to sulfonamides; Z88.8 Allergy status to other drugs, medicaments and biological substances; Z87.01 Personal history of pneumonia (recurrent); Z86.010 Personal history of colon polyps; Z87.19 Personal history of other diseases of the digestive system; Z83.3 Family history of diabetes mellitus; Z82.49 Family history of ischemic heart disease and other diseases of the circulatory system; Z80.3 Family history of malignant neoplasm of breast; Z80.8 Family history of malignant neoplasm of other organs or systems
CPT/HCPCS: 99285 ×2; 96374 ×2; 96361 ×10; 96375; 36415; 93005; 93306; 80053; 80048; 80061; 84484; 85025; 85610; 83036; 72050; 93880; 70450; 70553; 72141; G0378 ×2; J2060; J2270; J2405; J1885; A9581

== ENCOUNTER 2018-06-16 07:19 | Day surgery (SDC) | payer OTHER ==
[2018-06-12 15:25] VITALS: BMI 43.1
[2018-06-16 07:50] VITALS: TEMP 98.2
[2018-06-16 07:54] LABS: Glucose,Whole Blood 156 mg/dL (75-99)
[2018-06-16] MEDS ORDERED: LACTATED RINGERS 1,000 ML IV ONE (08:35)
[2018-06-16] MEDS ORDERED: PROPOFOL 10 MG/ML 20 ML VIAL IV ONE (08:38)
[2018-06-16 09:04] VITALS: RESP 18
--- NOTE | 2018-06-16 09:04 | P.PCN ---
Date of Procedure: 06/16/18 Procedure(s) Performed: Procedure: Colonoscopy and biopsy. Preoperative diagnosis: History of polyps. Postoperative diagnosis: 1. Diverticulosis with no evidence of acute diverticulitis or strictures. 2. Diminutive polyp in the sigmoid biopsied but no large polyps or cancer. Preparation: HalfLytely prep. Sedation: Was provided by anesthesia. Brief clinical history: The patient is a 52-year-old female who is scheduled for this evaluation because of history of polyps for screening for neoplasia. She has no abdominal complaints or anemia, but her intermittent fresh bleeding per rectum. She had polyps removed in 2009. Procedure: With the patient on her left lateral decubitus position and after informed consent and adequate sedation, the perianal area was inspected and it did not show any fissures or fistulas. There were no masses felt on digital rectal examination. The Olympus CFH 190L video colonoscope was then inserted in the rectum in the usual fashion and advanced to the cecum. There were multiple diverticular orifices seen scattered in the sigmoid with occasional orifice around the hepatic flexure with no evidence of acute diverticulitis or strictures. The mucosa appeared healthy. A diminutive polyp was seen in the sigmoid at around 35 cm from the anal verge which was biopsied but there were no large polyps or cancer. I retroflexed the endoscope in the rectum before the endoscope was withdrawn. Low-grade internal hemorrhoids were noted with no evidence of bleeding. The patient tolerated the procedure well. Plan: The patient was reassured. Discussed dietary measures. She will follow- up with you as planned and I recommended repeat exam in 5 years.
[2018-06-16 09:44] VITALS: BP 125/74; PULSE 86
[2018-06-16 10:10] LABS: Glucose,Whole Blood 126 mg/dL (75-99)
== END 2018-06-16 10:01 | disposition home or self-care (01) ==
LOC: ORWHC2ENDO 07:19
DX: Z12.11 Encounter for screening for malignant neoplasm of colon (principal); K63.5 Polyp of colon; K57.30 Diverticulosis of large intestine without perforation or abscess without bleeding; K64.8 Other hemorrhoids; K21.9 Gastro-esophageal reflux disease without esophagitis; E11.9 Type 2 diabetes mellitus without complications; I10 Essential (primary) hypertension; F32.9 Major depressive disorder, single episode, unspecified; Z86.010 Personal history of colon polyps; Z88.0 Allergy status to penicillin; Z88.2 Allergy status to sulfonamides; Z88.3 Allergy status to other anti-infective agents; Z88.8 Allergy status to other drugs, medicaments and biological substances; Z79.4 Long term (current) use of insulin; Z79.899 Other long term (current) drug therapy
CPT/HCPCS: 81025; 88305; 45380; J2704

== ENCOUNTER → 2018-11-14 | Outpatient (CLI) | payer OTHER ==
--- NOTE | 2018-11-14 14:33 | US ---
EXAMINATION TYPE: US carotid duplex BILAT DATE OF EXAM: 11/14/2018 COMPARISON: NONE CLINICAL HISTORY: Z86.73 Personal history of transient ischemic.... TIA EXAM MEASUREMENTS: RIGHT: Peak Systolic Velocity (PSV) cm/sec ----- Right CCA: 108.1 ----- Right ICA: 120.8 ----- Right ECA: 105.6 ICA/CCA ratio: 1.1 RIGHT: End Diastole cm/sec ----- Right CCA: 24.8 ----- Right ICA: 52.5 ----- Right ECA: 10.9 LEFT: Peak Systolic Velocity (PSV) cm/sec ----- Left CCA: 128.3 ----- Left ICA: 101.8 ----- Left ECA: 106.9 ICA/CCA ratio: 0.8 LEFT: End Diastole cm/sec ----- Left CCA: 32.3 ----- Left ICA: 50.0 ----- Left ECA: 12.1 VERTEBRALS (direction of flow): Right Vertebral: Antegrade Left Vertebral: Antegrade Rhythm: Normal No significant stenosis seen IMPRESSION: No evidence for hemodynamically significant stenosis. Criteria for Assigning % of Stenosis / Diameter reduction (Estimation based on the indirect measurements of the internal carotid artery velocities (ICA PSV). 1. Normal (no stenosis)=ICA PSV < 125 cm/s: ratio < 2.0: ICA EDV<40 cm/s. 2. Less than 50% stenosis=ICA PSV < 125 cm/s: ratio < 2.0: ICA EDV<40 cm/s. 3. 50 to 69% stenosis=ICA PSV of 125 to 230 cm/s: ration 2.0 ? 4.0: ICA EDV 40-100 cm/s. 4. Greater than 70% stenosis to near occlusion= ICA PSV > 230 cm/s: ratio > 4.0: ICA EDV > 100 cm/s. 5. Near occlusion= ICA PSV velocities may be low or undetectable: variable ratio and ICA EDV. 6. Total occlusion=unable to detect flow.
== END ==
LOC: RADUSWWP 13:38
PROVIDERS: ATTEND Family Medicine
DX: G45.9 Transient cerebral ischemic attack, unspecified (principal); Z86.73 Personal history of transient ischemic attack (TIA), and cerebral infarction without residual deficits; Z88.0 Allergy status to penicillin; Z88.1 Allergy status to other antibiotic agents; Z88.2 Allergy status to sulfonamides; Z88.8 Allergy status to other drugs, medicaments and biological substances
CPT/HCPCS: 93880

== ENCOUNTER 2020-08-15 11:47 | Emergency (ER) | payer OTHER ==
[2020-08-15] MEDS ORDERED: ACETAMINOPHEN TAB 500 MG TAB PO STA (12:25)
--- NOTE | 2020-08-15 12:31 | ED ---
URI HPI - General Source: patient, RN notes reviewed Mode of arrival: ambulatory Limitations: no limitations <Sandoval Logan - Last Filed: 08/15/20 12:31> <Shawn Ivory - Last Filed: 08/15/20 16:01> - General Chief Complaint: Upper Respiratory Infection Stated Complaint: fever, cough, SOB Time Seen by Provider: 08/15/20 12:27 - History of Present Illness Initial Comments: 55 show female presents emergency Department chief complaint of fever cough congestion buttocks nausea from diarrhea. Patient states symptoms started a few days ago Breezy worsen. Has not had any recent medications for fever. Patient does have history of hypertension and diabetes. Patient denies any significant shortness of breath she states she just does not feel well. (Sandoval Logan) This is a 55-year-old female presents emergency department with past medical history significant for diabetes and hypertension. Patient is also morbidly obese. Patient comes in stating that she started feeling bad on Saturday and the symptoms have progressed per patient states she has had quite a bit of diarrhea as well per patient states she has not lost her taste or smell. Patient states occasionally she short of breath but only when she is moving a lot. Patient denies any chest pain or palpitations. Patient denies any swelling to legs or calf tenderness. Patient denies any abdominal pain. Patient states she's been trying to drink a lot of fluids but has not been eating much. Patient states she is taking Motrin and Tylenol. (Shawn Ivory) - Related Data Home Medications Medication Instructions Recorded Confirmed Gabapentin [Neurontin] 100 mg PO BID 06/23/15 06/16/18 Ibuprofen [Motrin] 800 mg PO BID 06/23/15 06/16/18 Insulin Glargine [Lantus] 24 unit SQ HS 06/23/15 06/16/18 Lisinopril-Hctz 20-25 mg 1 tab PO QAM 06/23/15 06/16/18 [Zestoretic 20-25] Omeprazole [PriLOSEC] 20 mg PO AC-BRKFST 06/23/15 06/16/18 PARoxetine HCL 40 mg PO QAM 06/23/15 06/16/18 prednisoLONE ACETATE 1% OPHTH 1 drops LEFT EYE BID 10/01/17 06/16/18 [Pred Forte 1%] Cholecalciferol [Vitamin D3] 5,000 unit PO DAILY 06/12/18 06/16/18 INSULIN LISPRO (humaLOG) [humaLOG] 0 units SQ DIRECTED 06/12/18 06/16/18 INSULIN LISPRO (humaLOG) [humaLOG] 4 units SQ AC-TID 06/12/18 06/16/18 Latanoprost/Pf [Latanoprost 0.005% 1 drop BOTH EYES HS 06/12/18 06/16/18 Eye Drop] Magnesium Gluconate [Magonate] 500 mg PO HS 06/12/18 06/16/18 prednisoLONE ACETATE 1% OPHTH 1 drops RIGHT EYE QID 06/12/18 06/16/18 [Pred Forte 1%] Previous Rx's Medication Instructions Recorded Aspirin 81 mg PO DAILY #30 chew 10/02/17 Atorvastatin [Lipitor] 40 mg PO HS #30 tablet 10/02/17 Allergies Allergy/AdvReac Type Severity Reaction Status Date / Time levofloxacin [From Levaquin] Allergy Intermediate tendonitis Verified 08/15/20 12:20 glyburide Allergy Swelling Verified 08/15/20 12:20 Penicillins Allergy Unknown Verified 08/15/20 12:20 Childhood Sulfa (Sulfonamide Allergy Unknown Verified 08/15/20 12:20 Antibiotics) Childhood doxycycline AdvReac severe Verified 08/15/20 12:20 vomiting metformin AdvReac severe Verified 08/15/20 12:20 diarrhea Review of Systems ROS Other: All systems not noted in ROS Statement are negative. <Sandoval Logan - Last Filed: 08/15/20 12:31> ROS Other: All systems not noted in ROS Statement are negative. <Shawn Ivory - Last Filed: 08/15/20 16:01> ROS Statement: Those systems with pertinent positive or pertinent negative responses have been documented in the HPI. Past Medical History Past Medical History: Diabetes Mellitus, Eye Disorder, GERD/Reflux, GI Bleed, Hypertension, Liver Disease, Myocardial Infarction (NM), Osteoarthritis (OA), Pneumonia, Thyroid Disorder Additional Past Medical History / Comment(s): DYSPHAGIA, vit d deficiency, diverticulosis & COLON POLYPS, narrow angle glaucoma, CHRONIC BACK PAIN, NEUROPATHY JAIDA FEET AND HANDS, fell apr 2017 tore rt meniscus, "told in past that an ekg showed prior evidence of an mi-pt does'nt know when it happened", tremors, lt eye cataract(sx), past gi bleed source unk.fatty liver Last Myocardial Infarction Date:: unknown History of Any Multi-Drug Resistant Organisms: None Reported Past Surgical History: Adenoidectomy, Cholecystectomy, Tonsillectomy Additional Past Surgical History / Comment(s): JAIDA carpal tunnel sx; eye sx: right 02/24, left 03/27; 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, right breast needle biopsy-benign; colonoscopy & polypectomy-benign, lt corneal transplant, lt eye cataract-lens implant, rt cataract with lens implant and rt corneal transplant Past Anesthesia/Blood Transfusion Reactions: No Reported Reaction Past Psychological History: Depression Smoking Status: Never smoker Past Alcohol Use History: None Reported Past Drug Use History: None Reported - Past Family History Mother Family Medical History: Cancer, Diabetes Mellitus, Hypertension, Skin Disorder Additional Family Medical History / Comment(s): CA: thyroid, breast, skin; cataracts Father History Unknown: Yes Additional Family Medical History / Comment(s): pt's father when he was 29 , in a mva <Sandoval Logan - Last Filed: 08/15/20 12:31> General Exam Limitations: no limitations General appearance: alert, in no apparent distress Head exam: Present: atraumatic, normocephalic, normal inspection Respiratory exam: Present: normal lung sounds bilaterally. Absent: respiratory distress, wheezes, rales, rhonchi, stridor Cardiovascular Exam: Present: regular rate, normal rhythm, normal heart sounds. Absent: systolic murmur, diastolic murmur, rubs, gallop, clicks <Sandoval Logan - Last Filed: 08/15/20 12:31> <Shawn Ivory - Last Filed: 08/15/20 16:01> - General Exam Comments Initial Comments: GENERAL: Patient is well-developed and well-nourished. Patient is nontoxic and well- hydrated and is in mild distress. ENT: Neck is soft and supple. No significant lymphadenopathy is noted. Oropharynx is clear. Moist mucous membranes. Neck has full range of motion without eliciting any pain. EYES: The sclera were anicteric and conjunctiva were pink and moist. Extraocular movements were intact and pupils were equal round and reactive to light. Eyelids were unremarkable. PULMONARY: Unlabored respirations. Good breath sounds bilaterally. No audible rales rhonchi or wheezing was noted. CARDIOVASCULAR: There is a regular rate and rhythm without any murmurs gallops or rubs. ABDOMEN: Soft and nontender with normal bowel sounds. SKIN: Skin is clear with no lesions or rashes and otherwise unremarkable. NEUROLOGIC: Patient is alert and oriented x3. Cranial nerves II through XII are grossly intact. Motor and sensory are also intact. Normal speech, volume and content. Symmetrical smile. MUSCULOSKELETAL: Normal extremities with adequate strength and full range of motion. LYMPHATICS: No significant lymphadenopathy is noted PSYCHIATRIC: Normal psychiatric evaluation. (Shawn Ivory) Course Vital Signs 08/15/20 08/15/20 12:20 13:50 Temperature 100.7 F H 98.4 F Pulse Rate 100 87 Respiratory 18 16 Rate Blood Pressure 135/82 115/86 O2 Sat by Pulse 97 93 L Oximetry Medical Decision Making <Shawn Ivory - Last Filed: 08/15/20 16:01> - Medical Decision Making Patient will receive monoclonal antibodies and be discharged home to follow-up as needed and to return if there is any worsening symptoms. (Shawn Ivory) - Lab Data Lab Results 08/15/20 Range/Units 12:29 Coronavirus (PCR) Detected A (Not Detectd) Disposition <Sandoval Logan - Last Filed: 08/15/20 12:31> Is patient prescribed a controlled substance at d/c from ED?: No Time of Disposition: 13:29 <Shawn Ivory - Last Filed: 08/15/20 16:01> Clinical Impression: COVID-19 Disposition: HOME SELF-CARE Condition: Good Instructions (If sedation given, give patient instructions): Coronavirus Disease 2019 (COVID-19) Referrals: Deonte Giraldo MD [Primary Care Provider] - 1-2 days
[2020-08-15] MEDS ORDERED: BAMLANIVIMAB (EUA) 700 MG, ETESEVIMAB (EUA) 1,400 MG in SODIUM CHLORIDE 0.9% 50 ML IVPB ONE (13:45)
[2020-08-15 14:22] VITALS: RESP 16
[2020-08-15 16:45] VITALS: BP 114/66; PULSE 80; TEMP 99
== END 2020-08-15 16:04 | disposition home or self-care (01) ==
LOC: EC 11:47
DX: U07.1 COVID-19 (principal); I10 Essential (primary) hypertension; K21.9 Gastro-esophageal reflux disease without esophagitis; I25.2 Old myocardial infarction; E11.40 Type 2 diabetes mellitus with diabetic neuropathy, unspecified; M19.90 Unspecified osteoarthritis, unspecified site; E66.01 Morbid (severe) obesity due to excess calories; F32.9 Major depressive disorder, single episode, unspecified; Z79.82 Long term (current) use of aspirin; Z79.4 Long term (current) use of insulin; Z68.41 Body mass index [BMI] 40.0-44.9, adult; Z88.0 Allergy status to penicillin
CPT/HCPCS: 87635; 99284

== ENCOUNTER → 2024-07-24 | Outpatient (CLI) | payer OTHER ==
--- NOTE | 2024-08-03 12:09 | HM ---
HOLTER MONITOR REPORT STUDY: A 3-day Holter Monitor. INDICATION: Palpitations. Underlying rhythm is sinus with an average heart rate of 80 beats per minute. Heart rate varied from 64 beats per minute to 130 beats per minute. There were no episodes of sustained ventricular or supraventricular tachyarrhythmias. There were no episodes of more than 2-second pauses. There were supraventricular ectopics noted and rare PVCs are also noted. CONCLUSIONS: A 3-day Holter monitor reveals sinus rhythm with cardiac arrhythmia in the form of PACs and rare PVCs. MMODL / IJN: [id number] /
== END | disposition home or self-care (01) ==
LOC: RADECHMAIN 13:16
PROVIDERS: ATTEND Family Medicine
DX: I49.3 Ventricular premature depolarization (principal); I49.1 Atrial premature depolarization; R00.2 Palpitations
CPT/HCPCS: 93225